=== PATIENT | male | born 1955 | race African-American/Black ===

== ENCOUNTER 2019-06-07 17:29 | Emergency (ER) | payer SELFPAY ==
[2019-06-07] MEDS ORDERED: Naloxone HCl 0.4 mg/ml Vial ONE (17:44)
--- NOTE | 2019-06-07 18:30 | RAD ---
PORTABLE CHEST: Date: 06/07/2019 HISTORY: Chest pain. FINDINGS: Heart size is within normal limits. Mediastinal structures are unremarkable. There is some minimal in terstitial change in the right base which could represent some atelectasis. IMPRESSION: Minimal linear interstitial change of the right base suggestive of some atelectasis. POS: [facility]
--- NOTE | 2019-06-07 18:41 | CT ---
CT BRAIN PERFORMED WITHOUT CONTRAST ENHANCEMENT: Date: 06/07/2019 HISTORY: Altered mental status. FINDINGS: The ventricular and cisternal system is within normal limits. There are no signs of intracerebral hem orrhage or extra-axial fluid collections. The mastoid air cells and visualized sinuses are clear. IMPRESSION: No acute intracranial abnormalities. POS: [facility]
[2019-06-07 18:46] LABS: #Basophils 0.1 thou/uL (0.0-0.2); #Eosinphils 0.1 thou/uL (0.0-0.7); #Lymphocytes 1.8 thou/uL (1.20-3.40); #Monocytes 0.4 thou/uL (0.11-0.59); #Neutrophils 1.5 thou/uL (1.40-6.50); %Basophils 1.4 % (0.0-1.0); %Eosinophils 3.6 % (0.0-10.0); %Lymphocytes 45.5 % (21.0-51.0); %Monocytes 10.3 % (0.0-10.0); %Neutrophils 39.3 % (42.0-75.0); Hemoglobin 12.5 g/dL (14.0-18.0); Mean Corpuscular HGB CONC 32.6 g/dL (32.0-36.0); Mean Corpuscular Hemoglobin 27.5 pg (27.0-31.0); Mean Corpuscular Volume 84.2 fL (78.0-98.0); Mean Platelet Volume 8.2 fL (7.4-10.4); Platelet Count 249 thou/uL (130-400); RBC Distribution Width 12.7 % (11.5-14.5); Red Blood Cell (RBC) Count 4.56 mill/uL (4.70-6.10); White Blood Cell (WBC) Count 3.9 thou/uL (4.8-10.8)
[2019-06-07 19:09] LABS: ALT (SGPT) 21 U/L (8-55); AST (SGOT) 15 U/L (5-34); Albumin 3.6 g/dL (3.4-4.8); Alcohol Less than 10 mg/dL (Less than 10); Alkaline Phosphatase 65 U/L (40-110); Anion Gap 14 mmol/L (10-20); BUN (Urea Nitrogen) 8 mg/dL (8.4-25.7); Bilirubin, Total 0.3 mg/dL (0.2-1.2); Calc. Creatinine Clearance 0 mL/min (70-130); Calcium 8.2 mg/dL (7.8-10.44); Carbon Dioxide 24 mmol/L (23-31); Chloride 101 mmol/L (98-107); Estimated GFR-MDRD 82; Globulin 2.1 g/dL (2.4-3.5); Glucose 265 mg/dL (80-115); Potassium 3.6 mmol/L (3.5-5.1); Protein, Total 5.7 g/dL (5.8-8.1); Salicylate Less than 8.0 mg/dL (15.0-30.0); Sodium 135 mmol/L (136-145)
[2019-06-07 21:23] LABS: Bilirubin Negative (Negative); Blood, Urine Negative (Negative); Clarity Clear (Clear); Glucose, Urine (Dipstick) Greater than 1000 mg/dL (Negative); Leukocyte Negative Leu/uL (Negative); Nitrite Negative (Negative); Protein, Urine (Dipstick) Negative (Neg-Trace); Urobilinogen Normal mg/dL (Less than 2)
[2019-06-07 21:35] LABS: Amphetamine Not Detected (NotDetected); Barbiturates Screen Not Detected (NotDetected); Benzodiazepine Screen Detected (NotDetected); Cocaine Metabolite Screen Not Detected (NotDetected); Medtox Control Line Valid? VALID (VALID); Medtox Reader # READER 1; Methadone Not Detected (NotDetected); Methamphetamine Not Detected (NotDetected); Opiate Screen Detected (NotDetected); Oxycodone Screen Not Detected (NotDetected); Phencyclidine (PCP) Not Detected (NotDetected); THC/Cannabinoid Screen Not Detected (NotDetected); Tricyclic Screen Not Detected (NotDetected)
== END 2019-06-07 22:32 | disposition home or self-care (01) ==
LOC: ERS 17:29
DX: T40.2X2A Poisoning by other opioids, intentional self-harm, initial encounter (principal); E11.9 Type 2 diabetes mellitus without complications; I10 Essential (primary) hypertension; Z79.899 Other long term (current) drug therapy; Z79.84 Long term (current) use of oral hypoglycemic drugs
CPT/HCPCS: 36415; 36416; 70450; 71045; 80053; 80306; 80307; 81003; 83690; 85025; 93005; 96361; 96374; J2310

== ENCOUNTER 2020-09-26 13:02 | Observation (INO) | payer BC, OTHER ==
[2020-09-26 13:29] LABS: #Basophils 0.1 thou/uL (0.0-0.2); #Eosinphils 0.2 thou/uL (0.0-0.7); #Monocytes 0.4 thou/uL (0.11-0.59); #Neutrophils 2.7 thou/uL (1.40-6.50); %Basophils 1.1 % (0.0-1.0); %Eosinophils 3.9 % (0.0-10.0); %Lymphocytes 36.7 % (21.0-51.0); %Monocytes 6.7 % (0.0-10.0); %Neutrophils 51.6 % (42.0-75.0); Hemoglobin 14.2 g/dL (14.0-18.0); Mean Corpuscular HGB CONC 32.3 g/dL (32.0-36.0); Mean Corpuscular Hemoglobin 27.1 pg (27.0-31.0); Platelet Count 240 thou/uL (130-400); RBC Distribution Width 13.7 % (11.5-14.5); Red Blood Cell (RBC) Count 5.24 mill/uL (4.70-6.10); White Blood Cell (WBC) Count 5.3 thou/uL (4.8-10.8)
[2020-09-26 13:57] LABS: ALT (SGPT) 22 U/L (8-55); AST (SGOT) 17 U/L (5-34); Albumin 4.2 g/dL (3.4-4.8); Alkaline Phosphatase 87 U/L (40-110); Anion Gap 13 mmol/L (10-20); BUN (Urea Nitrogen) 12 mg/dL (8.4-25.7); Bilirubin, Total 0.4 mg/dL (0.2-1.2); Calc. Creatinine Clearance 0 mL/min (70-130); Calcium 9.7 mg/dL (7.8-10.44); Carbon Dioxide 26 mmol/L (23-31); Chloride 100 mmol/L (98-107); Globulin 2.7 g/dL (2.4-3.5); Glucose 260 mg/dL (80-115); Potassium 4.1 mmol/L (3.5-5.1); Protein, Total 6.9 g/dL (5.8-8.1); Sodium 135 mmol/L (136-145)
[2020-09-26 17:04] LABS: Troponin I Less than 0.010 ng/mL (< 0.028)
[2020-09-26] MEDS ORDERED: Aspirin 325 MG TAB PO SCH (18:15)
[2020-09-26] MEDS ORDERED: Dextrose 50% Abboject 50 ML SYRINGE SLOW IVP PRN (18:16)
[2020-09-26] MEDS ORDERED: Insulin Regular 300 UNITS/3 ML VIAL SC PRN ×2 (18:16)
[2020-09-26] MEDS ORDERED: Dextrose 5% in Water 1,000 ML IV PRN (18:16)
[2020-09-26 19:41] LABS: Troponin I Less than 0.010 ng/mL (< 0.028)
[2020-09-26 21:28] VITALS: BMI 27.9
[2020-09-26] MEDS ORDERED: Cyclobenzaprine 10 MG TAB PO PRN (22:18)
[2020-09-26] MEDS ORDERED: Gabapentin 300 MG CAP PO PRN (22:40)
[2020-09-26] MEDS: Nitroglycerin 2% Ointment 1 INCH/1 GM Packet TOP SCH (22:45)
[2020-09-26] MEDS ORDERED: metFORMIN 500 MG TAB PO SCH (22:45)
[2020-09-26] MEDS: HYDROcodone/Acetaminophen 10/325 mg Tablet PO PRN (22:49)
[2020-09-27 04:42] LABS: SARS-CoV-2 PCR by NAA Not Detected (NotDetected)
[2020-09-27 05:49] LABS: Cardiac Risk 3.3 (Less than 4.5)
[2020-09-27] MEDS: HYDROcodone/Acetaminophen 10/325 mg Tablet PO PRN (05:58)
[2020-09-27] MEDS: Nitroglycerin 2% Ointment 1 INCH/1 GM Packet TOP SCH ×2 (06:08→14:41)
[2020-09-27] MEDS ORDERED: metFORMIN 500 MG TAB PO SCH (08:00)
[2020-09-27] MEDS ORDERED: Aspirin Chewable 81 MG TAB PO SCH (09:00)
[2020-09-27] MEDS ORDERED: Cyclobenzaprine 10 MG TAB ONE (12:10)
[2020-09-27] MEDS ORDERED: Gabapentin 400 MG CAP ONE (12:11)
[2020-09-27 14:22] VITALS: TEMP 98.4
[2020-09-27 14:23] VITALS: BP 148/88
== END 2020-09-27 15:00 | disposition home or self-care (01) ==
LOC: ERS 13:02 → 2SW 15:31
PROVIDERS: ADMIT Internal Medicine; ATTEND Internal Medicine
DX: R07.89 Other chest pain (principal); I25.10 Atherosclerotic heart disease of native coronary artery without angina pectoris; E11.9 Type 2 diabetes mellitus without complications; I10 Essential (primary) hypertension; E78.5 Hyperlipidemia, unspecified; I25.2 Old myocardial infarction; Z79.02 Long term (current) use of antithrombotics/antiplatelets; Z79.1 Long term (current) use of non-steroidal anti-inflammatories (NSAID); Z79.82 Long term (current) use of aspirin; Z79.84 Long term (current) use of oral hypoglycemic drugs; Z79.899 Other long term (current) drug therapy; Z95.5 Presence of coronary angioplasty implant and graft; Z20.822 Contact with and (suspected) exposure to COVID-19
CPT/HCPCS: 36415; 36416; 71045; 80053; 80061; 84484; 85025; 87635; 93005; 94760; G0378; U0003; U0005

== ENCOUNTER 2020-11-16 12:33 | Outpatient (CLI) | payer BC, OTHER | END 2020-11-16 12:34 | disposition home or self-care (01) | LOC: BICRAD 12:33 | PROVIDERS: ATTEND Internal Medicine Critical Care Medicine | DX: R06.00 Dyspnea, unspecified (principal) | CPT/HCPCS: 71046 ==